=== PATIENT | female | born 1965 | race Two or more races ===

== ENCOUNTER 2023-07-03 16:42 | Inpatient (IN) | payer BC ==
[~2023-07-03] VITALS: Ht 160 cm; Wt 57.6 kg
[2023-07-03] MEDS: BLOOD SUGAR DIAGNOSTIC STRIP TEST SCH ×2 (02:30→20:30)
[2023-07-03 17:22] LABS: BASOPHILS % 0.5 % (0.0-2.0); EOSINOPHILS % 0.2 % (0.0-5.0); HEMOGLOBIN. 15.2 g/dL (12.0-16.0); LYMPHOCYTES % 12.5 % (20.0-50.0); MEAN CORPUSCULAR HGB CONC 31.5 g/dL (31.0-37.0); MEAN CORPUSCULAR VOLUME 98.3 fL (81.0-99.0); MEAN PLATELET VOLUME 7.7 fl (7.4-10.4); MONOCYTES % 13.2 % (2.0-8.0); NEUTROPHILS % 73.6 % (40.0-76.0); PLATELET 303 x1000/uL (130-400); RED BLOOD CELL COUNT 4.88 mill/uL (4.2-5.4); RED CELL DISTRIBUTION WIDTH 14.3 % (11.6-14.6); WHITE BLOOD COUNT 9.3 x1000/uL (4.5-11.0)
[2023-07-03 17:40] LABS: ACETAMINOPHEN 9 ug/mL (10-30); ALANINE AMINOTRANSFERASE 15 IU/L (10-49); ALBUMIN 4.6 g/dL (3.2-4.8); ASPARTATE AMINOTRANSFERASE 21 IU/L (<34); BETA HYDROXYBUTYRATE 8.6 mMol/L (0.0-0.3); BILIRUBIN TOTAL 0.4 mg/dL (0.1-1.0); CALCIUM 9.3 mg/dL (8.7-10.4); CHLORIDE 105 mEq/L (98-107); CREATININE 1.1 mg/dL (0.6-1.0); GLUCOSE 274 mg/dL (70-105); POTASSIUM 4.9 mEq/L (3.5-5.1); PROTEIN TOTAL 7.5 g/dL (6.0-8.3); SODIUM 133 mEq/L (136-145); UREA NITROGEN BLOOD 28 mg/dL (9-23)
[2023-07-03 17:49] LABS: CARBON DIOXIDE < 10 mEq/L (21-32); ETHANOL BLOOD < 10 mg/dL (<10); TROPONIN I HIGH SENSITIVITY < 4 ng/L (3.0-34)
[2023-07-03 17:53] LABS: AMMONIA 146 uMol/L (<32)
[2023-07-03] MEDS ORDERED: POTASSIUM CHLORIDE INJ 40 MEQ in SODIUM CHLORIDE 0.9% 230 ML IV PRN (18:00)
[2023-07-03] MEDS ORDERED: INSULIN REGULAR (DRIP) 100 UNITS in SODIUM CHLORIDE 0.9% 99 ML IV SCH (18:00)
[2023-07-03] MEDS ORDERED: LACTULOSE 20G/30ML UDC PO ONE (18:00)
[2023-07-03] MEDS ORDERED: DEXTROSE 50% WATER 50ML SYRINGE IV PRN ×3 (18:00→19:45)
[2023-07-03] MEDS ORDERED: KCL 20MEQ/100ML PREMIX 100 ML IV PRN (18:00)
[2023-07-03] MEDS: LACTULOSE ENEMA 1,000ML BOTTLE PR STA (18:09)
[2023-07-03] MEDS: DEXT 5%/0.9% NACL 1,000 ML IV SCH (18:10)
[2023-07-03] MEDS: SODIUM CHLORIDE 0.9% 1,000 ML IV SCH (18:10)
[2023-07-03 18:32] LABS: BG BASE EXCESS -31.2 mmol/L (-2.0-2.0); BG CARBOXYHEMOGLOBIN 0.3 % (0.5-1.5); BG DEOXYHEMOGLOBIN 1.4 % (0.0-5.0); BG FRACTION INSPIRED OXYGEN 21; BG HCO3 ACT 2.3 mmol/L (22.0-26.0); BG METHEMOGLOBIN 0.5 % (0.0-1.5); BG OXYGEN SATURATION 98.6 % (92.0-98.5); BG OXYHEMOGLOBIN 97.8 % (94.0-97.0); BG PCO2 14.3 mmHg (35.0-45.0); BG PO2 144.8 mmHg (75.0-100.0); BG SAMPLE SITE RIGHT BRACHIAL; BG TOTAL HEMOGLOBIN 15.3 g/dL (12.0-18.0); BG VENT MODE ROOM AIR
[2023-07-03] MEDS: SODIUM CHLORIDE 0.9% 1,000 ML IV ONE (18:39)
[2023-07-03 19:16] LABS: PHOSPHORUS 4.3 mg/dL (2.5-4.9)
[2023-07-03] MEDS ORDERED: IPRATROPIUM/ALBUTEROL 0.5-3(2.5)MG/3ML NEB NEB PRN (19:45)
[2023-07-03] MEDS ORDERED: NITROGLYCERIN 0.4MG TABLET SL SL PRN (19:45)
[2023-07-03] MEDS ORDERED: NA PHOS,M-B/NA PHOS,DI-BA ENEMA 118ML PR PRN (19:45)
[2023-07-03] MEDS ORDERED: ONDANSETRON HCL 4MG/2ML INJ IV PRN (19:45)
[2023-07-03] MEDS ORDERED: CLONIDINE 0.1MG TABLET PO PRN (19:45)
[2023-07-03] MEDS ORDERED: SODIUM CHLORIDE 0.9% 1000ML BAG (SEPSIS BOLUS) IV ONE (19:45)
[2023-07-03] MEDS ORDERED: MAGNESIUM/ALUMINUM HYDROXIDE/SIMETHICONE 30ML UDC PO PRN (19:45)
[2023-07-03] MEDS ORDERED: ACETAMINOPHEN 325MG TABLET PO PRN (19:45)
[2023-07-03] MEDS ORDERED: DOCUSATE SODIUM 100MG CAPSULE PO PRN (19:45)
[2023-07-03] MEDS: SODIUM BICARBONATE 8.4% 1 MEQ/ML 50ML SYR IV ONE ×2 (19:53)
[2023-07-03] MEDS: INSULIN REGULAR 100U/100ML PMX 100 ML IV SCH (19:53)
[2023-07-03] MEDS: SODIUM CHLORIDE 0.9% 1,650 ML IV ONE (20:53)
[2023-07-03] MEDS: KCL 20MEQ/100ML PREMIX 100 ML IV NR (20:53)
[2023-07-03] MEDS ORDERED: INSULIN REGULAR 100U/100ML PMX 100 ML IV SCH (21:00)
[2023-07-03 21:02] LABS: CHOLESTEROL 234 mg/dL (<200); HDL CHOLESTEROL 90 mg/dL (>65); IRON 36 ug/dL (50-170); LDL CHOLESTEROL 106 mg/dL (5-100); TOTAL IRON BINDING CAPACITY 343 ug/dl (250-425); TRIGLYCERIDE 226 mg/dL (0-150)
[2023-07-03 22:53] LABS: BG BASE EXCESS -26.9 mmol/L (-2.0-2.0); BG CARBOXYHEMOGLOBIN 0.2 % (0.5-1.5); BG DEOXYHEMOGLOBIN 1.4 % (0.0-5.0); BG FRACTION INSPIRED OXYGEN 21; BG METHEMOGLOBIN 0.5 % (0.0-1.5); BG OXYGEN SATURATION 98.6 % (92.0-98.5); BG OXYHEMOGLOBIN 97.9 % (94.0-97.0); BG PCO2 12.9 mmHg (35.0-45.0); BG PH 6.981 (7.350-7.450); BG PO2 129.8 mmHg (75.0-100.0); BG SAMPLE SITE RIGHT RADIAL; BG TOTAL HEMOGLOBIN 14.2 g/dL (12.0-18.0); BG VENT MODE ROOM AIR
[2023-07-03 23:06] LABS: CLARITY URINE CLOUDY (CLEAR); COLOR URINE YELLOW (YELLOW); GLUCOSE URINE 3+ (NEGATIVE); KETONES URINE 4+ (NEGATIVE); LEUKOCYTE ESTERASE URINE NEGATIVE (NEGATIVE); NITRITE URINE NEGATIVE (NEGATIVE); OCCULT BLOOD URINE 2+ (NEGATIVE); PROTEIN URINE 1+ (NEGATIVE); UROBILINOGEN URINE 0.2 E.U./dL (0.2-1.0)
[2023-07-03 23:16] LABS: BACTERIA URINE NONE SEEN; COARSE GRANULAR CASTS URINE 0-5 /lpf; RBC URINE 0-2 /hpf (0-2); SQUAMOUS EPITHELIAL CELL URINE RARE /lpf (RARE/1+); WBC URINE NONE SEEN /hpf (0-2)
[2023-07-03] MEDS ORDERED: SODIUM BICARBONATE 8.4% 1 MEQ/ML 50ML SYR IV NR (23:45)
[2023-07-03 23:47] LABS: CALCIUM 8.6 mg/dL (8.7-10.4); CHLORIDE 114 mEq/L (98-107); CREATINE KINASE 248 IU/L (34-145); CREATINE KINASE MB FRACTION 10.2 ng/mL (0.5-3.6); GLUCOSE 222 mg/dL (70-105); POTASSIUM 4.2 mEq/L (3.5-5.1); SODIUM 143 mEq/L (136-145); TROPONIN I HIGH SENSITIVITY 5 ng/L (3.0-34); UREA NITROGEN BLOOD 32 mg/dL (9-23)
[2023-07-03 23:55] LABS: CARBON DIOXIDE < 10 mEq/L (21-32)
[2023-07-04] MEDS ORDERED: DEXTROSE 50% WATER 50ML SYRINGE IV PRN (00:45)
[2023-07-04 00:51] LABS: CHLORIDE 114 mEq/L (98-107); PHOSPHORUS 2.2 mg/dL (2.5-4.9); POTASSIUM 4.2 mEq/L (3.5-5.1); SODIUM 142 mEq/L (136-145)
[2023-07-04] MEDS: ENOXAPARIN 40MG/0.4ML SYR SUBCUT SCH (00:52)
[2023-07-04 00:55] LABS: CARBON DIOXIDE < 10 mEq/L (21-32)
[2023-07-04] MEDS: SODIUM BICARBONATE 8.4% 1 MEQ/ML 50ML SYR IV NR ×2 (01:00→06:52)
[2023-07-04] MEDS ORDERED: POTASSIUM PHOS,M-BASIC-D-BASIC 30 MMOL in DEXTROSE 5% WATER 1,000 ML IV SCH (01:15)
[2023-07-04] MEDS: SODIUM CHL 0.9% + KCL 20MEQ/L 1,000 ML IV SCH (02:00)
[2023-07-04] MEDS: POTASSIUM PHOS,M-BASIC-D-BASIC 20 MMOL in DEXT 5% WATER 243.3333 ML IV NR (02:15)
[2023-07-04] MEDS: CEFTRIAXONE 1GM PREMIX 50 ML IV SCH (05:06)
[2023-07-04 05:19] LABS: BASOPHILS % 0.4 % (0.0-2.0); DIFFERENTIAL COMMENT 0; EOSINOPHILS % 0.1 % (0.0-5.0); HEMATOCRIT. 40.1 % (36.0-48.0); HEMOGLOBIN. 13.6 g/dL (12.0-16.0); LYMPHOCYTES % 18.7 % (20.0-50.0); MEAN CORPUSCULAR HEMOGLOBIN 31.7 pg (28.0-32.0); MEAN CORPUSCULAR HGB CONC 33.9 g/dL (31.0-37.0); MEAN CORPUSCULAR VOLUME 93.4 fL (81.0-99.0); MEAN PLATELET VOLUME 7.3 fl (7.4-10.4); MONOCYTES % 9.2 % (2.0-8.0); NEUTROPHILS % 71.6 % (40.0-76.0); PLATELET 219 x1000/uL (130-400); RED CELL DISTRIBUTION WIDTH 13.1 % (11.6-14.6); WHITE BLOOD COUNT 5.2 x1000/uL (4.5-11.0)
[2023-07-04 05:36] LABS: ALANINE AMINOTRANSFERASE 12 IU/L (10-49); ALBUMIN 3.8 g/dL (3.2-4.8); ASPARTATE AMINOTRANSFERASE 25 IU/L (<34); BILIRUBIN TOTAL 0.3 mg/dL (0.1-1.0); CALCIUM 8.5 mg/dL (8.7-10.4); CHLORIDE 121 mEq/L (98-107); CREATINE KINASE 333 IU/L (34-145); CREATINE KINASE MB FRACTION 15.4 ng/mL (0.5-3.6); CREATININE 0.9 mg/dL (0.6-1.0); GLUCOSE 228 mg/dL (70-105); POTASSIUM 3.6 mEq/L (3.5-5.1); PROTEIN TOTAL 6.4 g/dL (6.0-8.3); SODIUM 148 mEq/L (136-145); TROPONIN I HIGH SENSITIVITY 8 ng/L (3.0-34); UREA NITROGEN BLOOD 29 mg/dL (9-23)
[2023-07-04 05:54] LABS: FOLIC ACID (FOLATE) SERUM > 20.00 ng/mL (>5.38)
[2023-07-04] MEDS: ACETAMINOPHEN 325MG TABLET PO PRN (05:56)
[2023-07-04] MEDS: GUAIFENESIN 200MG/10ML SUGAR FREE UDC PO PRN (05:56)
[2023-07-04 05:57] LABS: VITAMIN B12 SERUM > 2000 pg/mL (211-911)
[2023-07-04] MEDS: LACTULOSE 20G/30ML UDC PO SCH (06:00)
[2023-07-04 06:05] LABS: PHOSPHORUS 0.7 mg/dL (2.5-4.9)
[2023-07-04 06:06] LABS: CARBON DIOXIDE < 10 mEq/L (21-32)
[2023-07-04 06:56] LABS: BG BASE EXCESS -15.4 mmol/L (-2.0-2.0); BG CARBOXYHEMOGLOBIN 0.3 % (0.5-1.5); BG DEOXYHEMOGLOBIN 2.7 % (0.0-5.0); BG FRACTION INSPIRED OXYGEN 21; BG HCO3 ACT 8.9 mmol/L (22.0-26.0); BG METHEMOGLOBIN 0.4 % (0.0-1.5); BG OXYGEN SATURATION 97.3 % (92.0-98.5); BG OXYHEMOGLOBIN 96.6 % (94.0-97.0); BG PCO2 19.1 mmHg (35.0-45.0); BG PH 7.286 (7.350-7.450); BG PO2 83.1 mmHg (75.0-100.0); BG SAMPLE SITE RIGHT RADIAL; BG TOTAL HEMOGLOBIN 13.2 g/dL (12.0-18.0); BG VENT MODE ROOM AIR
[2023-07-04] MEDS ORDERED: DEXT 5%/0.45% NACL 500ML 500 ML IV PRN (07:30)
[2023-07-04] MEDS ORDERED: SODIUM BICARBONATE 150 MEQ in DEXTROSE 5% WATER 1,000 ML IV SCH (07:30)
[2023-07-04] MEDS: POTASSIUM PHOS,M-BASIC-D-BASIC 30 MMOL in SODIUM CHLORIDE 0.9% 500 ML IV NR ×2 (08:04→23:30)
[2023-07-04] MEDS ORDERED: INSULIN REGULAR 100U/100ML PMX 100 ML IV SCH (08:15)
[2023-07-04] MEDS ORDERED: INSULIN LISPRO 100 UNITS/ML SUBCUT SCH (08:20)
[2023-07-04 08:30] LABS: CALCIUM 7.9 mg/dL (8.7-10.4); CARBON DIOXIDE 14 mEq/L (21-32); CHLORIDE 125 mEq/L (98-107); CREATININE 0.9 mg/dL (0.6-1.0); GLUCOSE 187 mg/dL (70-105); SODIUM 152 mEq/L (136-145); UREA NITROGEN BLOOD 25 mg/dL (9-23)
[2023-07-04 08:49] LABS: POTASSIUM 2.5 mEq/L (3.5-5.1)
[2023-07-04 08:50] LABS: PHOSPHORUS < 0.3 mg/dL (2.5-4.9)
[2023-07-04] MEDS: PANTOPRAZOLE SODIUM 40 MG/VIAL IV SCH (10:50)
[2023-07-04 12:15] LABS: *AMPHETAMINES SCREEN URINE NEGATIVE (NEGATIVE); *BARBITURATES SCREEN URINE NEGATIVE (NEGATIVE); *BENZODIAZEPINES SCREEN URINE NEGATIVE (NEGATIVE); *COCAINE SCREEN URINE NEGATIVE (NEGATIVE); CANNABINOID URINE SCREEN NEGATIVE (NEGATIVE); ECSTASY MDMA SCREEN URINE NEGATIVE (NEGATIVE); METHADONE URINE SCREEN Neg (NEGATIVE); OPIATES URINE SCREEN NEGATIVE (NEGATIVE); PHENCYCLIDINE URINE SCREEN NEGATIVE (NEGATIVE)
[2023-07-04 15:22] LABS: CALCIUM 7.9 mg/dL (8.7-10.4); CARBON DIOXIDE 12 mEq/L (21-32); CHLORIDE 124 mEq/L (98-107); CREATININE 0.9 mg/dL (0.6-1.0); GLUCOSE 166 mg/dL (70-105); PHOSPHORUS 1.7 mg/dL (2.5-4.9); POTASSIUM 3.1 mEq/L (3.5-5.1); SODIUM 152 mEq/L (136-145); UREA NITROGEN BLOOD 15 mg/dL (9-23)
[2023-07-04] MEDS ORDERED: PIPERACILLIN/TAZO 3.375G/50ML 50 ML IV SCH (16:00)
[2023-07-04] MEDS: MAGNESIUM 2 G PREMIX 50 ML IV ONE (16:00)
[2023-07-04] MEDS ORDERED: DEXT 5%/0.9% NACL KCL 20MEQ/L 1,000 ML IV SCH (16:00)
[2023-07-04] MEDS: POTASSIUM PHOS,M-BASIC-D-BASIC 20 MMOL in DEXT 5% WATER 243.3333 ML IV ONE (16:30)
[2023-07-04 20:28] LABS: CALCIUM 8.1 mg/dL (8.7-10.4); CARBON DIOXIDE 15 mEq/L (21-32); CHLORIDE 126 mEq/L (98-107); CREATININE 0.9 mg/dL (0.6-1.0); GLUCOSE 94 mg/dL (70-105); PHOSPHORUS 1.5 mg/dL (2.5-4.9); SODIUM 154 mEq/L (136-145); UREA NITROGEN BLOOD 16 mg/dL (9-23)
[2023-07-04 20:35] LABS: POTASSIUM 2.6 mEq/L (3.5-5.1)
[2023-07-04] MEDS: MAGNESIUM 2 G PREMIX 50 ML IV NR (20:45)
[2023-07-04] MEDS: VANCOMYCIN 1.25GM PMX (XELLIA) 250 ML IV NR (23:30)
[2023-07-04] MEDS: KCL 20MEQ/100ML PREMIX 100 ML IV SCH (23:30)
[2023-07-04] MEDS: ATORVASTATIN CALCIUM 40MG TABLET PO SCH (23:30)
[2023-07-04] MEDS: PIPERACILLIN/TAZO 3.375G/50ML 50 ML IV SCH (23:45)
[2023-07-05] VITALS (26 sets, daily range): BP systolic 84–127; BP diastolic 53–84; PULSE 78–101; RESP 14–28; TEMP 98.5–99.2
[2023-07-05 01:44] LABS: CALCIUM 7.9 mg/dL (8.7-10.4); CARBON DIOXIDE 12 mEq/L (21-32); CHLORIDE 121 mEq/L (98-107); CREATININE 0.8 mg/dL (0.6-1.0); GLUCOSE 137 mg/dL (70-105); PHOSPHORUS 3.7 mg/dL (2.5-4.9); POTASSIUM 3.3 mEq/L (3.5-5.1); SODIUM 151 mEq/L (136-145); UREA NITROGEN BLOOD 15 mg/dL (9-23)
[2023-07-05 03:59] LABS: CALCIUM 7.9 mg/dL (8.7-10.4); CARBON DIOXIDE 10 mEq/L (21-32); CHLORIDE 119 mEq/L (98-107); CREATININE 0.8 mg/dL (0.6-1.0); GLUCOSE 145 mg/dL (70-105); PHOSPHORUS 3.2 mg/dL (2.5-4.9); POTASSIUM 3.1 mEq/L (3.5-5.1); SODIUM 149 mEq/L (136-145); UREA NITROGEN BLOOD 15 mg/dL (9-23)
[2023-07-05 05:22] LABS: CALCIUM 8.2 mg/dL (8.7-10.4); CARBON DIOXIDE 11 mEq/L (21-32); CHLORIDE 118 mEq/L (98-107); CREATININE 0.8 mg/dL (0.6-1.0); GLUCOSE 135 mg/dL (70-105); POTASSIUM 3.2 mEq/L (3.5-5.1); SODIUM 149 mEq/L (136-145); UREA NITROGEN BLOOD 16 mg/dL (9-23)
[2023-07-05] MEDS: VANCOMYCIN 750MG PREMIX 150 ML IV SCH (06:00)
[2023-07-05 12:14] LABS: AMMONIA < 10 uMol/L (<32)
[2023-07-05 12:15] LABS: CALCIUM 8.4 mg/dL (8.7-10.4); CARBON DIOXIDE 15 mEq/L (21-32); CHLORIDE 120 mEq/L (98-107); CREATININE 0.7 mg/dL (0.6-1.0); GLUCOSE 142 mg/dL (70-105); PHOSPHORUS 2.1 mg/dL (2.5-4.9); SODIUM 149 mEq/L (136-145); UREA NITROGEN BLOOD 12 mg/dL (9-23)
[2023-07-05 12:25] LABS: POTASSIUM 2.6 mEq/L (3.5-5.1)
[2023-07-05] MEDS: KCL 20MEQ/100ML PREMIX 100 ML IV SCH ×3 (12:43→20:00)
[2023-07-05] MEDS: POTASSIUM CHLORIDE 20MEQ TABLET SR PO NR ×3 (12:44→20:00)
[2023-07-05] MEDS: INSULIN REGULAR 100U/100ML PMX 100 ML IV SCH (13:30)
[2023-07-05] MEDS ORDERED: DEXTROSE 50% WATER 50ML SYRINGE IV PRN (13:45)
[2023-07-05] MEDS: SODIUM CHLORIDE 0.9% 1,000 ML IV SCH (14:00)
[2023-07-05] MEDS ORDERED: KCL 20MEQ/100ML PREMIX 100 ML IV PRN (14:00)
[2023-07-05] MEDS ORDERED: POTASSIUM CHLORIDE INJ 40 MEQ in SODIUM CHLORIDE 0.9% 230 ML IV PRN (14:00)
[2023-07-05] MEDS: DEXT 5%/0.9% NACL 1,000 ML IV SCH (14:12)
[2023-07-05] MEDS: BLOOD SUGAR DIAGNOSTIC STRIP TEST SCH (14:15)
[2023-07-05 15:08] LABS: BG CARBOXYHEMOGLOBIN 0.3 % (0.5-1.5); BG DEOXYHEMOGLOBIN 4.2 % (0.0-5.0); BG FRACTION INSPIRED OXYGEN 21; BG HCO3 ACT 14.5 mmol/L (22.0-26.0); BG METHEMOGLOBIN 0.3 % (0.0-1.5); BG OXYGEN SATURATION 95.8 % (92.0-98.5); BG OXYHEMOGLOBIN 95.2 % (94.0-97.0); BG PCO2 24.8 mmHg (35.0-45.0); BG PH 7.385 (7.350-7.450); BG PO2 76.4 mmHg (75.0-100.0); BG SAMPLE SITE LEFT BRACHIAL; BG TOTAL HEMOGLOBIN 10.8 g/dL (12.0-18.0); BG VENT MODE ROOM AIR
[2023-07-05 19:03] LABS: CALCIUM 8.3 mg/dL (8.7-10.4); CARBON DIOXIDE 15 mEq/L (21-32); CHLORIDE 123 mEq/L (98-107); CREATININE 0.7 mg/dL (0.6-1.0); GLUCOSE 177 mg/dL (70-105); POTASSIUM 3.2 mEq/L (3.5-5.1); SODIUM 149 mEq/L (136-145); UREA NITROGEN BLOOD 10 mg/dL (9-23)
[2023-07-05 20:44] LABS: CALCIUM 8.1 mg/dL (8.7-10.4); CARBON DIOXIDE 15 mEq/L (21-32); CHLORIDE 123 mEq/L (98-107); CREATININE 0.6 mg/dL (0.6-1.0); GLUCOSE 194 mg/dL (70-105); POTASSIUM 3.1 mEq/L (3.5-5.1); SODIUM 150 mEq/L (136-145); UREA NITROGEN BLOOD 9 mg/dL (9-23)
[2023-07-05] MEDS: POTASSIUM CHLORIDE INJ 30 MEQ in DEXT 5%/0.9% NACL 1,000 ML IV SCH (21:19)
[2023-07-05] MEDS: POTASSIUM PHOS,M-BASIC-D-BASIC 20 MMOL in DEXT 5% WATER 243.3333 ML IV NR (21:19)
[2023-07-06] VITALS (32 sets, daily range): BP systolic 101–144; BP diastolic 71–97; PULSE 72–98; RESP 12–27; TEMP 97.8–99
[2023-07-06 00:26] LABS: CALCIUM 8.1 mg/dL (8.7-10.4); CARBON DIOXIDE 16 mEq/L (21-32); CHLORIDE 124 mEq/L (98-107); CREATININE 0.6 mg/dL (0.6-1.0); GLUCOSE 174 mg/dL (70-105); PHOSPHORUS 2.2 mg/dL (2.5-4.9); POTASSIUM 4.1 mEq/L (3.5-5.1); SODIUM 150 mEq/L (136-145); UREA NITROGEN BLOOD 8 mg/dL (9-23)
[2023-07-06 02:46] LABS: CALCIUM 8.3 mg/dL (8.7-10.4); CARBON DIOXIDE 17 mEq/L (21-32); CHLORIDE 122 mEq/L (98-107); CREATININE 0.6 mg/dL (0.6-1.0); GLUCOSE 167 mg/dL (70-105); PHOSPHORUS 2.1 mg/dL (2.5-4.9); POTASSIUM 4.1 mEq/L (3.5-5.1); SODIUM 149 mEq/L (136-145); UREA NITROGEN BLOOD 9 mg/dL (9-23)
[2023-07-06 05:49] LABS: BASOPHILS % 0.1 % (0.0-2.0); HEMATOCRIT. 32.4 % (36.0-48.0); MEAN CORPUSCULAR HEMOGLOBIN 31.2 pg (28.0-32.0); MEAN CORPUSCULAR VOLUME 91.7 fL (81.0-99.0); MEAN PLATELET VOLUME 7.9 fl (7.4-10.4); MONOCYTES % 5.7 % (2.0-8.0); NEUTROPHILS % 81.2 % (40.0-76.0); PLATELET 194 x1000/uL (130-400); RED BLOOD CELL COUNT 3.54 mill/uL (4.2-5.4); RED CELL DISTRIBUTION WIDTH 13.9 % (11.6-14.6); WHITE BLOOD COUNT 9.6 x1000/uL (4.5-11.0)
[2023-07-06 06:01] LABS: CALCIUM 8.3 mg/dL (8.7-10.4); CARBON DIOXIDE 18 mEq/L (21-32); CHLORIDE 124 mEq/L (98-107); CREATININE 0.6 mg/dL (0.6-1.0); GLUCOSE 196 mg/dL (70-105); PHOSPHORUS 1.4 mg/dL (2.5-4.9); SODIUM 150 mEq/L (136-145); UREA NITROGEN BLOOD 10 mg/dL (9-23)
[2023-07-06] MEDS ORDERED: DEXTROSE 50% WATER 50ML SYRINGE IV PRN ×2 (08:00→10:30)
[2023-07-06] MEDS: INSULIN LISPRO 100 UNITS/ML SUBCUT NR (08:33)
[2023-07-06] MEDS: POTASSIUM PHOS,M-BASIC-D-BASIC 20 MMOL in DEXT 5% WATER 243.3333 ML IV NR (10:47)
[2023-07-06] MEDS: INSULIN GLARGINE 100 UNITS/ML SUBCUT NR (10:48)
[2023-07-06] MEDS: INSULIN LISPRO 100 UNITS/ML SUBCUT SCH ×2 (11:30→12:58)
[2023-07-06] MEDS: BLOOD SUGAR DIAGNOSTIC STRIP TEST SCH (11:39)
[2023-07-06] MEDS: VANCOMYCIN 750MG PREMIX 150 ML IV SCH (13:39)
[2023-07-06 15:06] LABS: CALCIUM 8.3 mg/dL (8.7-10.4); CARBON DIOXIDE 16 mEq/L (21-32); CHLORIDE 125 mEq/L (98-107); CREATININE 0.7 mg/dL (0.6-1.0); GLUCOSE 237 mg/dL (70-105); PHOSPHORUS 1.1 mg/dL (2.5-4.9); POTASSIUM 3.9 mEq/L (3.5-5.1); SODIUM 151 mEq/L (136-145); UREA NITROGEN BLOOD 11 mg/dL (9-23)
[2023-07-06] MEDS: POTASSIUM PHOS,M-BASIC-D-BASIC 30 MMOL in DEXT 5% WATER 500 ML IV NR (18:44)
[2023-07-06] MEDS: INSULIN GLARGINE 100 UNITS/ML SUBCUT SCH (21:17)
[2023-07-06 22:42] LABS: CARBON DIOXIDE 21 mEq/L (21-32); CHLORIDE 113 mEq/L (98-107); CREATININE 0.5 mg/dL (0.6-1.0); GLUCOSE 151 mg/dL (70-105); POTASSIUM 3.8 mEq/L (3.5-5.1); SODIUM 142 mEq/L (136-145); UREA NITROGEN BLOOD 12 mg/dL (9-23)
[2023-07-06 22:43] LABS: PHOSPHORUS 3.4 mg/dL (2.5-4.9)
[2023-07-07] VITALS (8 sets, daily range): BP systolic 103–124; BP diastolic 69–88; PULSE 66–92; RESP 15–21; TEMP 96.3–97.8
[2023-07-07 06:12] LABS: CALCIUM 8.8 mg/dL (8.7-10.4); CARBON DIOXIDE 24 mEq/L (21-32); CHLORIDE 113 mEq/L (98-107); CREATININE 0.5 mg/dL (0.6-1.0); GLUCOSE 143 mg/dL (70-105); POTASSIUM 3.9 mEq/L (3.5-5.1); SODIUM 145 mEq/L (136-145); UREA NITROGEN BLOOD 9 mg/dL (9-23)
[2023-07-07 06:31] LABS: HEMATOCRIT 33.3 % (36.0-48.0); HEMOGLOBIN 11.8 g/dL (12.0-16.0); MEAN CORPUSCULAR HEMOGLOBIN 31.8 pg (28.0-32.0); MEAN CORPUSCULAR HGB CONC 35.5 g/dL (31.0-37.0); MEAN CORPUSCULAR VOLUME 89.6 fL (81.0-99.0); PLATELET 233 x1000/uL (130-400); RED BLOOD CELL COUNT 3.72 mill/uL (4.2-5.4); WHITE BLOOD COUNT 7.5 x1000/uL (4.5-11.0)
[2023-07-07] MEDS: INSULIN GLARGINE 100 UNITS/ML SUBCUT SCH (22:25)
[2023-07-08] VITALS: BP 104/66; PULSE 71; RESP 17; TEMP 97.3
[2023-07-08 04:00] VITALS: BP 104/71; PULSE 69; RESP 17; TEMP 98.1
[2023-07-08 04:06] LABS: HEMATOCRIT 33.3 % (36.0-48.0); HEMOGLOBIN 11.3 g/dL (12.0-16.0); MEAN CORPUSCULAR HEMOGLOBIN 30.6 pg (28.0-32.0); PLATELET 271 x1000/uL (130-400); RED CELL DISTRIBUTION WIDTH 13.4 % (11.6-14.6); WHITE BLOOD COUNT 6.8 x1000/uL (4.5-11.0)
[2023-07-08 04:21] LABS: CALCIUM 8.4 mg/dL (8.7-10.4); CARBON DIOXIDE 28 mEq/L (21-32); CHLORIDE 109 mEq/L (98-107); CREATININE 0.5 mg/dL (0.6-1.0); GLUCOSE 113 mg/dL (70-105); PHOSPHORUS 3.4 mg/dL (2.5-4.9); POTASSIUM 3.3 mEq/L (3.5-5.1); SODIUM 144 mEq/L (136-145); UREA NITROGEN BLOOD 12 mg/dL (9-23)
[2023-07-08 08:00] VITALS: BP 97/64; PULSE 80; RESP 17; TEMP 98.1
[2023-07-08] MEDS: POTASSIUM CHLORIDE 20MEQ TABLET SR PO NR (08:38)
[2023-07-08] MEDS: FAMOTIDINE 20MG/2ML VIAL IV SCH (08:38)
[2023-07-08 12:00] VITALS: BP 103/70; PULSE 75; RESP 18; TEMP 98.1
[2023-07-08 16:00] VITALS: BP 94/66; PULSE 83; RESP 19; TEMP 99
[2023-07-08 20:00] VITALS: BP 106/69; PULSE 93; RESP 20; TEMP 96.3
[2023-07-09] VITALS: BP 92/65; PULSE 82; RESP 20; TEMP 97.5
[2023-07-09 04:00] VITALS: BP 103/62; PULSE 68; RESP 20; TEMP 97.5
[2023-07-09 06:01] LABS: HEMATOCRIT 32.7 % (36.0-48.0); HEMOGLOBIN 11.1 g/dL (12.0-16.0); MEAN CORPUSCULAR HEMOGLOBIN 30.9 pg (28.0-32.0); MEAN CORPUSCULAR HGB CONC 34.1 g/dL (31.0-37.0); MEAN CORPUSCULAR VOLUME 90.7 fL (81.0-99.0); PLATELET 369 x1000/uL (130-400); RED BLOOD CELL COUNT 3.61 mill/uL (4.2-5.4); RED CELL DISTRIBUTION WIDTH 13.4 % (11.6-14.6); WHITE BLOOD COUNT 6.4 x1000/uL (4.5-11.0)
[2023-07-09 06:12] LABS: CALCIUM 8.5 mg/dL (8.7-10.4); CARBON DIOXIDE 27 mEq/L (21-32); CHLORIDE 107 mEq/L (98-107); CREATININE 0.5 mg/dL (0.6-1.0); GLUCOSE 118 mg/dL (70-105); POTASSIUM 3.6 mEq/L (3.5-5.1); SODIUM 142 mEq/L (136-145); UREA NITROGEN BLOOD 9 mg/dL (9-23)
[2023-07-09 08:00] VITALS: BP 107/71; PULSE 81; RESP 20; TEMP 98.1
[2023-07-09] MEDS: LEVOFLOXACIN 500MG TABLET PO SCH (09:58)
[2023-07-09] MEDS ORDERED: [UNRECOGNIZED DRUG - CODE] * (10:44)
[2023-07-09] MEDS ORDERED: LANC-585 TP (10:44)
[2023-07-09] MEDS ORDERED: INSU100I28 SQ (10:44)
[2023-07-09] MEDS ORDERED: ATOR40TA70 MT (10:44)
[2023-07-09] MEDS ORDERED: INSU200I SQ (10:44)
[2023-07-09 11:26] VITALS: BP 107/71; PULSE 82; TEMP 98.2; O2SAT 100
[2023-07-09 12:00] VITALS: BP 104/61; PULSE 20; RESP 20; TEMP 98.1
== END 2023-07-09 13:20 | disposition home or self-care (01) | DRG 637 ==
LOC: ER 16:42 → MICUSO 18:36 → EDBEDREQ 18:40 → MICUSO 07-05 09:15 → 5EST 07-06 23:04 → 6EST 07-07 12:11
PROVIDERS: ADMIT Internal Medicine; ATTEND Internal Medicine
DX: E11.10 Type 2 diabetes mellitus with ketoacidosis without coma (principal); G92.8 Other toxic encephalopathy; J15.4 Pneumonia due to other streptococci; E72.20 Disorder of urea cycle metabolism, unspecified; N17.9 Acute kidney failure, unspecified; R65.10 Systemic inflammatory response syndrome (SIRS) of non-infectious origin without acute organ dysfunction; Z20.822 Contact with and (suspected) exposure to COVID-19; E78.5 Hyperlipidemia, unspecified; E83.39 Other disorders of phosphorus metabolism; E87.6 Hypokalemia; Z79.4 Long term (current) use of insulin; Z79.899 Other long term (current) drug therapy
CPT/HCPCS: 36415; 36600; 71045; 71250; 80048; 80051; 80053; 80061; 80202; 80305; 80307; 80320; 80329; 81003; 82010; 82140; 82375; 82550; 82553; 82607; 82746; 82805; 82962; 83036; 83540; 83550; 83605; 83735; 83880; 83930; 84100; 84145; 84439; 84443; 84484; 85025; 85027; 85379; 87077; 87186; 87426; 93005; 93306; 93970; 97116; 97162; 97166; 97530; 99291; C9113; J0696; J1650; J1815; J2543; J3370; J3475; J3480; J3490; J7030; J7040; J7042; J7050; J7060; J7070; G0480